=== PATIENT | female | born 1960 | race African-American/Black ===

== ENCOUNTER 2019-07-26 21:54 | Emergency (ER) | payer MEDICAID, OTHER ==
[2019-07-26] MEDS ORDERED: NS 0.9% 1000 ML** 1,000 ML IV ONE (22:17)
--- NOTE | 2019-07-26 22:17 | ED ---
HPI Diabetic - HPI Summary HPI Summary: The patient is a 58 y/o F arriving by ambulance to [facility] with a chief complaint of taking the wrong dosage of her insulin tonight at 2049. She reports that she recently had her DM medications changed from Humalog and Lantus to Rosiglitazone and Algoliptin. She is supposed to take 8 units of the short term medication and 35 units of the long-lasting, but she mixed up the dosages and took 35 units of the short-acting medication instead. After the event, her blood glucose was 297. At [facility], she was advised to take the long-acting in addition, but shes having symptoms of diaphoresis, chills, and blurred vision, so she came to the ED. Currently, her symptoms are rated 0/10 in severity. She notes two recent admissions for DKA. PMHx: DM, HTN, HLD, COPD, GERD, CVA (2x), bilateral below the knee amputation. Light every day smoker, no EtOH, no substance use. Medications reviewed. Allergies noted. - History Of Current Complaint Chief Complaint: EDDiabeticProb Time Seen by Provider: 07/26/19 22:06 Hx Obtained From: Patient Onset/Duration: Sudden Onset, Still Present Timing: Hours Severity Initially: Mild Severity Currently: Moderate Aggravating: Medication Change Alleviating: Nothing Associated Signs & Symptoms: Chills, Diaphoresis Related History: Hx of DKA - Allergies/Home Medications Allergies/Adverse Reactions: Allergies Allergy/AdvReac Type Severity Reaction Status Date / Time fentanyl Allergy Hallucinati Verified 07/26/19 22:06 ons naproxen Allergy Rash And Verified 07/26/19 22:06 Itching sulfamethoxazole Allergy Swelling Verified 07/26/19 22:06 [From Bactrim] trimethoprim [From Bactrim] Allergy Swelling Verified 07/26/19 22:06 PMH/Surg Hx/FS Hx/Imm Hx Endocrine/Hematology History: Reports: Hx Diabetes - with hx of DKA Cardiovascular History: Reports: Hx Hypercholesterolemia, Hx Hypertension Respiratory History: Reports: Hx Chronic Obstructive Pulmonary Disease (COPD) GI History: Reports: Hx Gastroesophageal Reflux Disease Musculoskeletal History: Reports: Other Musculoskeletal History - bilateral below the knee amputations Neurological History: Reports: Hx CVA - 2x - Surgical History Surgical History: Yes Surgery Procedure, Year, and Place: bilateral BKA Infectious Disease History: No Infectious Disease History: Denies: Traveled Outside the [place] in Last 30 Days - Family History Known Family History: Positive: Hypertension, Diabetes - Social History Alcohol Use: None Alcohol Amount: Recovering. Sober since 05/2019 Hx Substance Use: No Substance Use Type: Reports: None Hx Tobacco Use: Yes Smoking Status (MU): Light Every Day Tobacco Smoker Review of Systems Positive: Chills, Skin Diaphoresis Positive: Blurred Vision All Other Systems Reviewed And Are Negative: Yes Physical Exam - Summary Physical Exam Summary: General: Well-developed, Well-nourished female. No acute distress. HEENT: Normocephalic, Atraumatic. Eyes: Conjuctiva normal, PERRL. Ears: TMs within normal limits. Nares: (-) discharge, (-) erythema. Oropharynx: Clear, mucous membranes moist, (-) exudates. Neck: Soft, FROM, (-) lymphadenopathy, (-) thyromegaly, (-) JVD. Cardiovascular: Normal sinus rhythm, (-) murmur. Lungs: Clear to auscultation bilaterally (-) wheezes, (-) rales, (-) rhonchi. Abdomen: Soft, non-tender, non-distended, (-) organomegaly, normal bowel sounds. Back: (-) CVA tenderness Extremities: Bilateral below the knee amputations. No edema. Skin: Warm, dry, (-) rash. Neuro: Alert and oriented x3, no focal deficits. Psychiatric: Mood normal, affect normal. Triage Information Reviewed: Yes Vital Signs On Initial Exam: Initial Vitals Temp Pulse Resp BP Pulse Ox 98.4 F 97 18 155/86 97 07/26/19 22:02 07/26/19 22:02 07/26/19 22:02 07/26/19 22:02 07/26/19 22:02 Vital Signs Reviewed: Yes Diagnostics - Vital Signs Vital Signs Temp Pulse Resp BP Pulse Ox 07/26/19 22:02 98.4 F 97 18 155/86 97 - Laboratory Result Diagrams: 07/26/19 22:30 07/26/19 22:30 Lab Statement: Any lab studies that have been ordered have been reviewed, and results considered in the medical decision making process. Re-Evaluation - Re-Evaluation First Eval Re-Evaluation Time: 23:15 Comment: Blood glucose is 195. Second Eval Re-Evaluation Time: 01:34 Comment: Glucose is 98. I have discussed results with the patient. Discussed symptoms that warrant immediate return to ED. Diabetic Course/Dx - Course Course Of Treatment: Pt is a 58 y/o F arriving by ambulance with concern for blood glucose level changes after mixing up DM medication (Rosiglitazone and Algoliptin) dosages tonight with most recent glucose reading at 297 with accompanying symptoms of diaphoresis, chills, and blurred vision. Upon physical exam, the patient exhibits no acute abnormalities other than bilateral below the knee amputations. In the ED course, the patient was administered fluids. Blood work reveals WBCs of 11.6, hgb of 10.3, hct of 31, absolute eos of 0.7, BUN of 25, creatinine of 1.30, glucose of 195, POC glucose of 214 (at 2217), AST of 10, and alkaline phosphatase of 138. Repeat POC glucose at 0000 is 81. POC glucose at 0102 is 100. At 0134, glucose is 98. We discussed plan for discharge home; she understands and agrees with this plan. - Diagnoses Provider Diagnoses: Overdose of insulin, Accidental overdose Discharge ED - Sign-Out/Discharge Documenting (check all that apply): Patient Departure - Patient will be discharged home. Patient Received Moderate/Deep Sedation with Procedure: No - Discharge Plan Condition: Stable Disposition: HOME Patient Education Materials: Insulin Pens (ED) Referrals: Sajan RIVERO,Rigo Lieberman [Primary Care Provider] - 3 Days Additional Instructions: Please follow up with your primary care physician within three days. Please return to ED for any new or worsening symptoms. - Billing Disposition and Condition Condition: STABLE Disposition: Home - Attestation Statements Document Initiated by Emilia: Yes Documenting Scribe: Chayito Corrales Provider For Whom Emilia is Documenting (Include Credential): Dr. Mariajose Burton MD Scribe Attestation: Chayito Norris scribed for Dr. Mariajose Burton MD on 07/27/19 at 7264. Scribe Documentation Reviewed: Yes Provider Attestation: The documentation as recorded by the Chayito thomas accurately reflects the service I personally performed and the decisions made by me, Dr. Mariajose Burton MD Status of Scribe Document: Viewed
[2019-07-26 23:02] LABS: ABS Basophils 0.1 10^3/ul (0-0.2); ABS Eosinophils 0.7 10^3/ul (0-0.6); ABS Lymphocytes 4.6 10^3/ul (1.0-4.8); ABS Monocytes 0.5 10^3/ul (0-0.8); ABS Neutrophils 5.8 10^3/ul (1.5-7.7); Eosinophil % 5.7 %; Hematocrit 31 % (35-47); Hemoglobin 10.3 g/dL (12.0-16.0); Lymphocyte % 39.3 %; Mean Corpuscular HGB Conc 33 g/dL (31-36); Mean Corpuscular Hemoglobin 27 pg (27-31); Mean Corpuscular Volume 81 fL (80-97); Mean Platelet Volume 9.1 fL (7.4-10.4); Nucleated Red Blood Cells % 0.1; Platelet Count 251 10^3/uL (150-450); Red Blood Count 3.88 10^6 /uL (3.70-4.87); Red Cell Distribution Width 14 % (10-15); White Blood Count 11.6 10^3/uL (3.5-10.8)
[2019-07-26 23:13] LABS: Albumin 4.2 g/dL (3.2-5.2); Albumin/Globulin Ratio 1.6 (1-3); BUN/Creatinine Ratio 19.2 (8-20); Calcium 9.8 mg/dL (8.6-10.3); EGFR African American 50.9 (>60); EGFR Non-African American 42.1 (>60); Globulin 2.6 g/dL (2-4); Potassium 3.6 mmol/L (3.5-5.0); Total Bilirubin 0.2 mg/dL (0.2-1.0); Total Protein 6.8 g/dL (6.4-8.9)
[2019-07-27 02:22] VITALS: BP 124/76
== END 2019-07-27 02:21 | disposition home or self-care (01) ==
LOC: ED 21:54
DX: T38.3X1A Poisoning by insulin and oral hypoglycemic [antidiabetic] drugs, accidental (unintentional), initial encounter (principal); Y92.9 Unspecified place or not applicable; E11.65 Type 2 diabetes mellitus with hyperglycemia; I10 Essential (primary) hypertension; E78.00 Pure hypercholesterolemia, unspecified; J44.9 Chronic obstructive pulmonary disease, unspecified; K21.9 Gastro-esophageal reflux disease without esophagitis; Z86.73 Personal history of transient ischemic attack (TIA), and cerebral infarction without residual deficits; Z89.512 Acquired absence of left leg below knee; Z89.511 Acquired absence of right leg below knee; F17.200 Nicotine dependence, unspecified, uncomplicated; Z79.4 Long term (current) use of insulin; Z88.1 Allergy status to other antibiotic agents; Z88.5 Allergy status to narcotic agent; Z88.2 Allergy status to sulfonamides; Z88.8 Allergy status to other drugs, medicaments and biological substances
CPT/HCPCS: 36415; 80053; 85025; 96360; 96361; 99283

== ENCOUNTER 2019-08-29 14:10 | Emergency (ER) | payer OTHER ==
--- NOTE | 2019-08-29 14:30 | ED ---
HPI Chest Pain - HPI Summary HPI Summary: 58 year old F presenting to [facility] from [facility] where she is a resident complains of left-sided chest pain with associated shortness of breath since minutes ago. Patient additionally complains of hyperglycemia since today 08/29/19 morning. Per nurse triage note, patient had BG 500+ after which she gave herself 20 units this morning. Per nurse triage note, patient had BG 249 this afternoon. Patient states that she had urinalysis done at [facility] [[email or web address]] which showed ketones and WBCs. The patient rates the pain left chest pain 7/10 in severity per nurse triage note. Symptoms aggravated by nothing. Symptoms alleviated by nothing. PMHx: diabetes, DKA, CVA x2, bilateral BKA, left eye prosthesis. Patient states she was hospitalized in May 2019 twice for DKA. Vital signs while in room: HR 101 BPM, BP 171/82, O2 sat 97% - History of Current Complaint Chief Complaint: EDDiabeticProb Time Seen by Provider: 08/29/19 14:24 Hx Obtained From: Patient, Other: - [facility] hx to triage nurse Onset/Duration: Started Minutes Ago, Still Present Timing: Constant Initial Severity: Moderate Current Severity: Moderate Pain Intensity: 7 Pain Scale Used: 0-10 Numeric Chest Pain Location: Mid Sternal Chest Pain Radiates: No Character: Sharp/Stabbing Aggravating Factor(s): Nothing Alleviating Factor(s): Nothing Associated Signs and Symptoms: Positive: Chest Pain, Shortness of Breath, Other : - hyperglycemia, ketones and WBC in recent urinalysis - Allergy/Home Medications Allergies/Adverse Reactions: Allergies Allergy/AdvReac Type Severity Reaction Status Date / Time fentanyl Allergy Hallucinati Verified 07/26/19 22:06 ons naproxen Allergy Rash And Verified 07/26/19 22:06 Itching sulfamethoxazole Allergy Swelling Verified 07/26/19 22:06 [From Bactrim] trimethoprim [From Bactrim] Allergy Swelling Verified 07/26/19 22:06 PMH/Surg Hx/FS Hx/Imm Hx Previously Healthy: No Endocrine/Hematology History: Reports: Hx Diabetes - with hx of DKA Cardiovascular History: Reports: Hx Hypercholesterolemia, Hx Hypertension Respiratory History: Reports: Hx Chronic Obstructive Pulmonary Disease (COPD) GI History: Reports: Hx Gastroesophageal Reflux Disease Musculoskeletal History: Reports: Other Musculoskeletal History - bilateral below the knee amputations Neurological History: Reports: Hx CVA - 2x - Surgical History Surgical History: Yes Surgery Procedure, Year, and Place: bilateral BKA Infectious Disease History: No Infectious Disease History: Denies: Traveled Outside the [place] in Last 30 Days - Family History Known Family History: Positive: Hypertension, Diabetes - Social History Lives: [facility] [employer] Alcohol Use: None Alcohol Amount: Recovering. Sober since 05/2019 Hx Substance Use: No Substance Use Type: Reports: None Hx Tobacco Use: Yes Smoking Status (MU): Light Every Day Tobacco Smoker Review of Systems Positive: Other - hyperglycemia Positive: Chest Pain Positive: Shortness Of Breath Gastrointestinal: Negative Positive: other - ketones and WBCs in recent urinalysis at [facility] Skin: Negative Neurological: Negative Psychological: Normal All Other Systems Reviewed And Are Negative: Yes Physical Exam - Summary Physical Exam Summary: Appearance: Ill-appearing, no acute pain distress, well-nourished Skin: Warm, color reflects adequate perfusion, dry Head: Normal Head/Face inspection, atraumatic Eyes: Conjunctiva clear ENT: Normal inspection Neck: Supple, no nodes, no JVD Respiratory: Lungs clear, normal breath sounds, no respiratory distress Cardio: RRR, No murmur, pulses normal, brisk capillary refill, chest pain is not reproducible. Abdomen: Soft, nontender, no CVAT Bowel sounds: Present Musculoskeletal: Strength Intact/ROM intact. Bilateral BKA. Psychological: Normal Neuro: Alert, muscle tone normal, no focal deficit Triage Information Reviewed: Yes Vital Signs On Initial Exam: Initial Vitals Temp Pulse Resp BP Pulse Ox 98.9 F 96 16 140/64 99 08/29/19 14:13 08/29/19 14:13 08/29/19 14:13 08/29/19 14:13 08/29/19 14:13 Vital Signs Reviewed: Yes Procedures - Sedation Patient Received Moderate/Deep Sedation with Procedure: No Diagnostics - Vital Signs Vital Signs Temp Pulse Resp BP Pulse Ox 08/29/19 14:13 98.9 F 96 16 140/64 99 - Laboratory Result Diagrams: 08/29/19 14:36 08/29/19 14:36 Lab Statement: Any lab studies that have been ordered have been reviewed, and results considered in the medical decision making process. - Radiology CXR Radiology Interpretation Completed By: Radiologist Summary of Radiographic Findings: NO ACTIVE CARDIOPULMONARY DISEASE IS NOTED. ED physician has reviewed this report. - EKG 1419 Cardiac Rate: NL - 97 BPM EKG Rhythm: Sinus Rhythm ST Segment: Non-Specific Ectopy: None EKG Comparison: Other - No prior to compare Summary of EKG Findings: An EKG at 14:57 reveals sinus rhythm 97 BPM, nml AV/IV CT, nml QTc, and nml axis. No acute changes. No prior EKG to compare. ED MD has reviewed and interpreted this EKG. Re-Evaluation - Re-Evaluation First Eval Re-Evaluation Time: 15:38 Change: Improved Comment: chest pain is a tiny ache rated 1-2/10. she was reassured about blood test Second Eval Re-Evaluation Time: 18:27 Change: Improved Comment: patient feels better. is pain free. is hungry. has no further questions Chest Pain Course/Dx - Course Course Of Treatment: 58 year old F complains of left sided chest pain, hyperglycemia, ketones and WBCs in her urine since today 08/29/19. Pt has hx DM and DKA, and is concerned she may be in DKA again. Pt is resident of [facility] [[email or web address]], where she had the glucose taken, and the urine sample tested. Upon exam, the patient is in no acute pain distress. She has bilateral BKA. Patient medications reviewed this visit. Nurses notes reviewed. Allergies noted. High blood pressure noted. Bloodwork results with no significant abnormalities except for RBC 3.67, Hgb 10.1, Hct 30, absolute eos 0.8, creatinine 0.99, glucose 215, lactic acid 3.5, AST 10, alkaline phosphatase 105. Troponin I 0.00. Troponin II 0.00. Blood gas results with no significant abnormalities except for pO2 51, HCO3 23, O2 saturation 80.2, base excess -1.8. pH is normal. Urinalysis results with no significant abnormalities except for protein 1+, urobilinogen, glucose 3+, and ascorbic acid, sqaumous epithelial cells. No ketones. An EKG at 14:57 reveals sinus rhythm 97 BPM, nml AV/IV CT, nml QTc, and nml axis. No acute changes. No prior EKG to compare. ED MD has reviewed and interpreted this EKG. CXR shows, per radiologist: NO ACTIVE CARDIOPULMONARY DISEASE IS NOTED. In the ED course, the patient was given normal saline fluids IV. Because the patient's glucose levels were in fair control, the patient's urine did not have ketones, her blood pH was normal, and the patient's blood work did not indicate DKA or serious cause for chest pain, the patient will be discharged home to [facility] [[email or web address]] with follow up from Dr. Moeller in 2 days. Patient was instructed to return to Emergency Department for new or worsening symptoms. Patient understands and is agreeable to this plan. - Diagnoses Provider Diagnoses: Poorly controlled type 2 diabetes mellitus, Chest pain, Anemia, Elevated lactic acid level, Glucose found in urine on examination, Protein in urine, Poorly controlled blood pressure Discharge ED - Sign-Out/Discharge Documenting (check all that apply): Patient Departure - Discharge - Discharge Plan Condition: Stable Disposition: HOME Patient Education Materials: Chest Pain (ED), Type 2 Diabetes Management for Adults (ED) Referrals: Sajan RIVERO,Rigo Lieberman [Medical Doctor] - 2 Days Additional Instructions: Your glucose was in fair control in the ER, and you were able to eat. Your urine did not have ketones while you were in the ER, and you did not have DKA based on the blood tests. The tests for your chest pain also did not show any serious cause for your chest pain. Please return to the Emergency Department for new or worsening symptoms. - Billing Disposition and Condition Condition: STABLE Disposition: Home - Attestation Statements Document Initiated by Emilia: Yes Documenting Scribe: Diana Bryan Provider For Whom Emilia is Documenting (Include Credential): Johana Sharpe MD Scribe Attestation: Diana Norris, scribed for Johana Sharpe MD on 09/15/19 at 2006. Scribe Documentation Reviewed: Yes Provider Attestation: The documentation as recorded by the Diana thomas accurately reflects the service I personally performed and the decisions made by me, Johana Sharpe MD Status of Scribe Document: Viewed
[2019-08-29 14:48] LABS: ABS Basophils 0.1 10^3/ul (0-0.2); ABS Eosinophils 0.8 10^3/ul (0-0.6); ABS Lymphocytes 2.4 10^3/ul (1.0-4.8); ABS Monocytes 0.5 10^3/ul (0-0.8); ABS Neutrophils 3.7 10^3/ul (1.5-7.7); Eosinophil % 11.1 %; Hematocrit 30 % (35-47); Hemoglobin 10.1 g/dL (12.0-16.0); Lymphocyte % 31.8 %; Mean Corpuscular HGB Conc 33 g/dL (31-36); Mean Corpuscular Hemoglobin 28 pg (27-31); Mean Corpuscular Volume 83 fL (80-97); Nucleated Red Blood Cells % 0.2; Platelet Count 239 10^3/uL (150-450); Red Blood Count 3.67 10^6 /uL (3.70-4.87); Red Cell Distribution Width 15 % (10-15); White Blood Count 7.6 10^3/uL (3.5-10.8)
[2019-08-29 14:54] LABS: INR 0.98 (0.82-1.09)
[2019-08-29 15:05] LABS: Albumin 4.1 g/dL (3.2-5.2); Albumin/Globulin Ratio 1.4 (1-3); BUN/Creatinine Ratio 14.1 (8-20); Calcium 9.7 mg/dL (8.6-10.3); EGFR African American 69.7 (>60); EGFR Non-African American 57.6 (>60); Globulin 2.9 g/dL (2-4); Potassium 4.2 mmol/L (3.5-5.0); Total Bilirubin 0.2 mg/dL (0.2-1.0)
[2019-08-29 15:10] LABS: CKMB ng/mL 2.2 ng/mL (0.6-6.3)
--- OUTSIDE RECORDS SUMMARY | 2019-08-29 15:29 | XMS REPORT ---
:1960 Author Organization [facility] Care Team Providers Name Role Phone Tristin Jane Unavailable Unavailable PROBLEMS Unknown Problems ALLERGIES No Information ENCOUNTERS Encounter Location Date Diagnosis [facility] [address] [place] [address] Aug, [id number] [place], [place] Jul, [id number] IMMUNIZATIONS No Known Immunizations SOCIAL HISTORY Never Assessed REASON FOR REFERRAL FUNCTIONAL STATUS PLAN OF CARE VITAL SIGNS MEDICATIONS Unknown Medications PROCEDURES Procedure Date Ordered Result Body Site LTD ORAL EVALUATION-PROBLEM FOCUS Aug 23, 2019 RESULTS No Results REASON FOR VISIT Insurance Providers [facility] Member Patient Patient Patient Patient Patient Subscriber Subscriber Subscriber Group Insurance Plan Plan Plan Plan ID Relationship Address Phone Name Date of ID Name Date of No Type Insurance Insurance Insurance Coverage to Subscriber Address Phone Name Dates Sascha [address] [facility] [phone] [place] self Jenna [id number] [address] [place] Medical [id number] Medicaid [id number] [phone] Medicaid self Jenna [id number] [address] [facility] [address] [address] [place] [address] [phone] [place] self Jenna [id number] [facility] [address] [facility] [address] [place] [id number] [place] [facility] [place] [address]
[2019-08-29] MEDS: NS 0.9% 1000 ML** 2,000 ML IV SCH ×2 (15:56→17:02)
[2019-08-29 17:45] LABS: Urine Appearance Clear; Urine Color Yellow; Urine Specific Gravity 1.025 (1.010-1.030)
[2019-08-29 17:46] LABS: Urine Bilirubin Negative (Negative); Urine Blood Negative (Negative); Urine Glucose 3+(>=500 mg/dL) (Negative); Urine Ketones Negative (Negative); Urine Nitrite Negative (Negative); Urine Protein 1+(30 mg/dL) (Negative); Urine Urobilinogen Positive (Negative)
[2019-08-29 18:06] LABS: Urine Bacteria Absent (Absent); Urine Red Blood Cell Trace(0-2/hpf) (Absent); Urine Squamous Epithelial Cell Present (Absent); Urine White Blood Cell Trace(0-5/hpf) (Absent)
[2019-08-29 18:17] VITALS: BP 157/80
== END 2019-08-29 18:54 | disposition home or self-care (01) ==
LOC: ED 14:10
DX: R07.89 Other chest pain (principal); R06.02 Shortness of breath; E11.65 Type 2 diabetes mellitus with hyperglycemia; D64.9 Anemia, unspecified; R74.0 Nonspecific elevation of levels of transaminase and lactic acid dehydrogenase [LDH]; R81 Glycosuria; R80.9 Proteinuria, unspecified; I10 Essential (primary) hypertension; J44.9 Chronic obstructive pulmonary disease, unspecified; Z86.73 Personal history of transient ischemic attack (TIA), and cerebral infarction without residual deficits; Z89.512 Acquired absence of left leg below knee; Z89.511 Acquired absence of right leg below knee; Z88.6 Allergy status to analgesic agent; Z88.5 Allergy status to narcotic agent; Z88.2 Allergy status to sulfonamides; F17.200 Nicotine dependence, unspecified, uncomplicated
CPT/HCPCS: 36415; 71045; 80053; 81003; 81015; 82550; 82553; 82803; 83605; 84484; 85025; 85610; 93005; 96360; 96361; 99283